=== PATIENT | female | born 1980 | race Caucasian/White ===

== ENCOUNTER 2020-08-21 17:47 | Emergency (ER) | payer SELFPAY ==
[2020-08-21 17:49] VITALS: BP 117/81; PULSE 80; RESP 16; TEMP 36.7; O2SAT 99; BMI 23.4
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
== END 2020-08-21 18:23 | disposition left against medical advice (07) ==
LOC: ER 18:15
PROVIDERS: Emergency Provider Emergency Medicine
DX: O46.90 Antepartum hemorrhage, unspecified, unspecified trimester (principal); Z3A.00 Weeks of gestation of pregnancy not specified
CPT/HCPCS: 12345; 99281